=== PATIENT | female | born 1950 | race Caucasian/White ===

== ENCOUNTER 2020-02-27 23:48 | Inpatient (IN) | payer MEDICARE ==
[~2020-02-27] VITALS: Ht 162.6 cm; Wt 57.6 kg
[2020-02-28] MEDS ORDERED: SODIUM CHLORIDE FLUSH 10ML SYR IVF ONE
--- NOTE | 2020-02-28 00:05 | NUR ---
This is a 69 y/o female arriving from [facility] for a Hemorrhagic stroke. Pt had on on january 08 and was healthy before that other than having Graves disease. Pt noticed this morning she had moderate headache and had partial vision loss. Pt has baseline inabilty to move left side or sensation. Pt reports she also has a diaper rash from incontienence. Pt reports she still has full sensation on right side. Pt denies any trauam and is arousable to voice. Pt denies cough, sob or fever. Pt also reports her baseline to consumption is soft diet. Pt struggles with solids and is unable to swallow pills.
--- NOTE | 2020-02-28 00:08 | NUR ---
Pt connected to monitors and call light in reach. Yamilex RN assisting with bm and cleaning patient.
[2020-02-28] MEDS ORDERED: ONDA4TAB13 SL (00:17)
[2020-02-28] MEDS ORDERED: OXYB5TAB10 PO (00:17)
[2020-02-28] MEDS ORDERED: ATOR20TA37 PO (00:17)
[2020-02-28] MEDS ORDERED: OXYM15MI4 NAS (00:17)
[2020-02-28] MEDS ORDERED: AMOX1TAB12 PO (00:17)
[2020-02-28] MEDS ORDERED: MELA1TAB22 PO (00:17)
[2020-02-28] MEDS ORDERED: LEVO25TA4 PO (00:17)
[2020-02-28] MEDS ORDERED: POTA20PA25 PO (00:17)
[2020-02-28] MEDS ORDERED: ocular lubricant OP (00:17)
[2020-02-28] MEDS ORDERED: PRED10TA PO (00:17)
[2020-02-28] MEDS ORDERED: LIOT25TA12 PO (00:17)
[2020-02-28] MEDS ORDERED: DIPH-628 PO (00:17)
[2020-02-28] MEDS ORDERED: LINA145C PO (00:17)
[2020-02-28] MEDS ORDERED: SIME125C PO (00:17)
[2020-02-28] MEDS ORDERED: CALC200T3 PO (00:17)
[2020-02-28 00:27] LABS: BASOPHILS # (AUTO) 0.05 x10^3/uL (0-0.1); BASOPHILS % (AUTO) 0 % (0-1); EOSINOPHILS % (AUTO) 1 % (1-7); LYMPHOCYTES # (AUTO) 1.98 x10^3/uL (1-3.4); LYMPHOCYTES % (AUTO) 13 % (22-44); MD NO; MEAN CORPUSCULAR HGB CONC 33.1 g/dL (32.4-35.8); MEAN CORPUSCULAR VOLUME 96.5 fL (80-100); MEAN PLATELET VOLUME 7.9 fL (7.4-10.4); MONOCYTES # (AUTO) 0.89 x10^3/uL (0.2-0.8); MONOCYTES % (AUTO) 6 % (2-9); NEUTROPHILS # (AUTO) 11.73 x10^3/uL (1.8-6.8); NEUTROPHILS % (AUTO) 80 % (42-75); PLATELET COUNT 368 x10^3/uL (130-400); RED BLOOD COUNT 4.48 x10^6/uL (3.82-5.3); RED CELL DISTRIBUTION WIDTH 14.8 % (9.6-15.2)
--- NOTE | 2020-02-28 00:32 | NUR ---
2ND IV STARTED FOR CTA.
[2020-02-28 00:33] LABS: INTERNATIONAL NORMALIZED RATIO 0.98 (0.93-1.1); PROTHROMBIN TIME 10.4 Seconds (9.6-11.5)
[2020-02-28 00:35] LABS: ALANINE AMINOTRANSFERASE 38 U/L (12-78); ALBUMIN 3.7 g/dL (3.4-5.0); ANION GAP 5 mmol/L (5-15); CALCIUM 10.1 mg/dL (8.5-10.1); CHLORIDE 101 mmol/L (98-107)
[2020-02-28 00:37] LABS: ALKALINE PHOSPHATASE 87 U/L (45-117); BILIRUBIN,TOTAL 0.4 mg/dL (0.2-1.0); TOTAL PROTEIN 7.2 g/dL (6.4-8.2)
--- NOTE | 2020-02-28 01:07 | NUR ---
PT INCONTINENT OF URINE AND BOWEL. PT CLEANED, FULL LINEN CHANGE COMPLETS, PURWICK CATH PLACED
[2020-02-28] MEDS ORDERED: OMNIPAQUE 350 MG/ML, 100ML BOTTLE ONE (01:13)
[2020-02-28] MEDS ORDERED: DEXAMETHASONE 4 MG/ML, 1ML IVPush ONE (01:30)
[2020-02-28] MEDS ORDERED: LEVETIRACETAM 1,000 MG in SODIUM CHLORIDE 0.9% 100 ML IV ONE (01:30)
[2020-02-28] MEDS ORDERED: ONDANSETRON 2MG/ML, 2ML IVPush PRN (02:00)
--- NOTE | 2020-02-28 02:36 | NUR ---
PT RESTING ON GURNEY, INCONTINENT OF BOWEL, PT CLEANED. SEIZURE PRECAUTIONS MAINTAINED. MONITORS IN PLACE, SIDERAIL SUP X2, CALL LIGHT WITHIN REACH. AWAITING ROOM FOR ADMIT
--- NOTE | 2020-02-28 03:25 | NUR ---
PT RESTING CALMLY WITH EYES CLOSED, OPENS EYES EASILY TO VERBAL RESPONSE, MONITORS IN PLACE, CALL LIGHT WITHIN REACH. AWAITING ROOM FOR ADMIT
--- NOTE | 2020-02-28 04:32 | NUR ---
PT INCONTINENT OF URINE AND STOOL. PT CLEANED, CREAM APPLIED TO BUTTOCK, FULL LINEN CHANGE COMPLETED.
--- NOTE | 2020-02-28 05:42 | NUR ---
PT RESTING ON GURNEY WITH EYES CLOSED, OPENS EYES EASILY TO VERBAL RESPONSE, MONITORS IN PLACE, SIDERAILS UP X2, CALL LIGHT WITHIN REACH
--- NOTE | 2020-02-28 06:31 | NUR ---
REPOSITIONED PT ON [facility], PLACED PILLOW UNDER LEFT SIDE FOR COMFORT, PT HAD SMALL BM, PT CLEANED. PT SITTING UP TALKING ON HER CELL PHONE
--- NOTE | 2020-02-28 06:58 | NUR ---
report received from herbert sanford.
--- NOTE | 2020-02-28 06:58 | NUR ---
REPORT GIVEN TO RAYRAY CAROLINA
[2020-02-28] MEDS ORDERED: POTASSIUM CHLORIDE 20 MEQ TAB.ER.PRT PO ONE (07:00)
--- NOTE | 2020-02-28 07:31 | NUR ---
REPORT GIVEN TO VILMA [employer]. ALL QUESTIONS ANSWERED.
[2020-02-28] MEDS ORDERED: LEVOTHYROXINE 25 MCG TABLET PO SCH (09:00)
[2020-02-28] MEDS ORDERED: morphine SULFATE 10 MG/ML, 1ML IVPush PRN (09:30)
[2020-02-28] MEDS ORDERED: OXYcodone IR 5MG TABLET PO PRN (09:30)
[2020-02-28] MEDS ORDERED: OXYcodone IR 5MG TABLET ONE (10:36)
--- NOTE | 2020-02-28 10:40 | NUR ---
PUREE/ THINS -Up for all meals -No straws -Alternate solids/liquids -Small bite/sips Addendum: 02/28/20 at [address] Amended: Links added.
[2020-02-28] MEDS ORDERED: LEVOTHYROXINE 100 MCG TABLET ONE (10:45)
[2020-02-28] MEDS: LIOTHYRONINE 25 MCG TABLET PO SCH (10:48)
[2020-02-28] MEDS: OXYBUTYNIN CHLORIDE 5 MG TABLET PO SCH ×3 (10:48→21:02)
[2020-02-28] MEDS: LEVOTHYROXINE 100 MCG TABLET PO SCH (10:48)
[2020-02-28] MEDS ORDERED: GADOTERATE 7.5 MMOL/15 ML SYR ONE (12:43)
[2020-02-28] MEDS: LEVETIRACETAM 1,000 MG in SODIUM CHLORIDE 0.9% 100 ML IV SCH (13:55)
[2020-02-28 15:10] VITALS: BP 124/79
[2020-02-28] MEDS: ATORVASTATIN 80 MG TABLET PO SCH (21:02)
[2020-02-28] MEDS: ACETAMINOPHEN 650 MG/20.3 ML UDC PO PRN (21:02)
[2020-02-29] MEDS: LEVETIRACETAM 1,000 MG in SODIUM CHLORIDE 0.9% 100 ML IV SCH ×2 (01:34→13:34)
[2020-02-29 04:00] VITALS: BP 116/65
[2020-02-29 04:55] LABS: BASOPHILS # (AUTO) 0.04 x10^3/uL (0-0.1); BASOPHILS % (AUTO) 0 % (0-1); EOSINOPHILS # (AUTO) 0.11 x10^3/uL (0-0.4); EOSINOPHILS % (AUTO) 1 % (1-7); LYMPHOCYTES # (AUTO) 2.47 x10^3/uL (1-3.4); LYMPHOCYTES % (AUTO) 18 % (22-44); MD NO; MEAN CORPUSCULAR HEMOGLOBIN 32.3 pg (27.0-34.8); MEAN CORPUSCULAR HGB CONC 33.3 g/dL (32.4-35.8); MEAN CORPUSCULAR VOLUME 97.2 fL (80-100); MEAN PLATELET VOLUME 7.9 fL (7.4-10.4); MONOCYTES # (AUTO) 0.89 x10^3/uL (0.2-0.8); MONOCYTES % (AUTO) 7 % (2-9); NEUTROPHILS # (AUTO) 10.02 x10^3/uL (1.8-6.8); NEUTROPHILS % (AUTO) 74 % (42-75); PLATELET COUNT 309 x10^3/uL (130-400); RED BLOOD COUNT 4.17 x10^6/uL (3.82-5.3); RED CELL DISTRIBUTION WIDTH 14.8 % (9.6-15.2)
[2020-02-29 05:07] LABS: ANION GAP 6 mmol/L (5-15); CALCIUM 9.5 mg/dL (8.5-10.1); CHLORIDE 106 mmol/L (98-107)
[2020-02-29] MEDS: ACETAMINOPHEN 650 MG/20.3 ML UDC PO PRN ×3 (07:53→20:35)
[2020-02-29] MEDS: OXYBUTYNIN CHLORIDE 5 MG TABLET PO SCH ×3 (08:57→20:35)
[2020-02-29] MEDS: LIOTHYRONINE 25 MCG TABLET PO SCH (08:57)
[2020-02-29] MEDS: LEVOTHYROXINE 100 MCG TABLET PO SCH (08:57)
[2020-02-29 11:30] VITALS: BP 104/68
[2020-02-29] MEDS: CLOBETASOL PROPIONATE CRM 0.05%, 15GM HOMETP SCH ×2 (13:00→20:35)
[2020-02-29] MEDS: HYDROCORTISONE CRM 2.5%, 20GM HOMETP SCH ×2 (13:00→20:36)
[2020-02-29 13:29] VITALS: BP 100/62
[2020-02-29] MEDS ORDERED: DEXTROSE 5% IV ONE (14:00)
[2020-02-29] MEDS ORDERED: LEVETIRACETAM IV ONE (14:00)
[2020-02-29] MEDS: CALCIUM CARBONATE 500 MG TAB.CHEW PO SCH (17:13)
[2020-02-29 20:00] VITALS: BP 104/66
[2020-02-29] MEDS: ATORVASTATIN 80 MG TABLET PO SCH (20:35)
[2020-02-29] MEDS: MELATONIN 5 MG TABLET PO SCH (21:00)
[2020-03-01] MEDS: LEVETIRACETAM 1,000 MG in SODIUM CHLORIDE 0.9% 100 ML IV SCH ×2 (00:48→13:54)
[2020-03-01 02:03] VITALS: BP 118/73
[2020-03-01] MEDS: ACETAMINOPHEN 650 MG/20.3 ML UDC PO PRN ×4 (03:17→22:13)
[2020-03-01 06:26] LABS: BASOPHILS # (AUTO) 0.04 x10^3/uL (0-0.1); BASOPHILS % (AUTO) 0 % (0-1); EOSINOPHILS # (AUTO) 0.15 x10^3/uL (0-0.4); EOSINOPHILS % (AUTO) 1 % (1-7); LYMPHOCYTES # (AUTO) 2.06 x10^3/uL (1-3.4); LYMPHOCYTES % (AUTO) 20 % (22-44); MD NO; MEAN CORPUSCULAR HEMOGLOBIN 32.1 pg (27.0-34.8); MEAN CORPUSCULAR HGB CONC 32.8 g/dL (32.4-35.8); MEAN PLATELET VOLUME 8.5 fL (7.4-10.4); MONOCYTES # (AUTO) 0.75 x10^3/uL (0.2-0.8); MONOCYTES % (AUTO) 7 % (2-9); NEUTROPHILS % (AUTO) 71 % (42-75); PLATELET COUNT 277 x10^3/uL (130-400); RED BLOOD COUNT 3.87 x10^6/uL (3.82-5.3); RED CELL DISTRIBUTION WIDTH 14.6 % (9.6-15.2)
[2020-03-01] MEDS: CALCIUM CARBONATE 500 MG TAB.CHEW PO SCH ×3 (07:39→15:51)
[2020-03-01 08:03] VITALS: BP 127/79
[2020-03-01] MEDS: LIOTHYRONINE 25 MCG TABLET PO SCH (08:13)
[2020-03-01] MEDS: OXYBUTYNIN CHLORIDE 5 MG TABLET PO SCH ×3 (08:13→20:35)
[2020-03-01] MEDS: LEVOTHYROXINE 100 MCG TABLET PO SCH (08:13)
[2020-03-01] MEDS: CLOBETASOL PROPIONATE CRM 0.05%, 15GM HOMETP SCH ×2 (08:18→20:35)
[2020-03-01] MEDS: HYDROCORTISONE CRM 2.5%, 20GM HOMETP SCH ×2 (08:19→20:35)
[2020-03-01 13:36] VITALS: BP 117/83
[2020-03-01] MEDS: HYDROcodone/APAP 5/325 TABLET PO PRN (14:28)
[2020-03-01 18:58] VITALS: BP 117/71
[2020-03-01] MEDS: ATORVASTATIN 80 MG TABLET PO SCH (20:35)
[2020-03-01] MEDS: MELATONIN 5 MG TABLET PO SCH (20:35)
[2020-03-02] VITALS: BP 110/65
[2020-03-02] MEDS: LEVETIRACETAM 1,000 MG in SODIUM CHLORIDE 0.9% 100 ML IV SCH (01:13)
[2020-03-02] MEDS: ACETAMINOPHEN 650 MG/20.3 ML UDC PO PRN ×4 (02:07→21:10)
[2020-03-02 06:42] VITALS: BP 105/63
[2020-03-02] MEDS: LIOTHYRONINE 25 MCG TABLET PO SCH (08:15)
[2020-03-02] MEDS: CALCIUM CARBONATE 500 MG TAB.CHEW PO SCH ×3 (08:15→15:48)
[2020-03-02] MEDS: LEVOTHYROXINE 100 MCG TABLET PO SCH (08:16)
[2020-03-02] MEDS: CLOBETASOL PROPIONATE CRM 0.05%, 15GM HOMETP SCH ×2 (08:16→20:00)
[2020-03-02] MEDS: LEVETIRACETAM 500 MG TABLET PO SCH ×2 (08:16→20:00)
[2020-03-02] MEDS: HYDROCORTISONE CRM 2.5%, 20GM HOMETP SCH ×2 (08:17→20:02)
[2020-03-02] MEDS: OXYBUTYNIN CHLORIDE 5 MG TABLET PO SCH ×3 (08:17→20:00)
[2020-03-02 12:41] VITALS: BP 100/64
[2020-03-02 19:20] VITALS: BP 118/71
[2020-03-02] MEDS: HYDROcodone/APAP 5/325 TABLET PO PRN (20:00)
[2020-03-02] MEDS: ATORVASTATIN 80 MG TABLET PO SCH (20:00)
[2020-03-02] MEDS: MELATONIN 5 MG TABLET PO SCH (20:00)
[2020-03-03 02:39] VITALS: BP 111/69
[2020-03-03 07:08] VITALS: BP 120/77
[2020-03-03] MEDS: CALCIUM CARBONATE 500 MG TAB.CHEW PO SCH ×3 (08:15→16:32)
[2020-03-03] MEDS: LIOTHYRONINE 25 MCG TABLET PO SCH (08:15)
[2020-03-03] MEDS: LEVOTHYROXINE 100 MCG TABLET PO SCH (08:15)
[2020-03-03] MEDS: LEVETIRACETAM 500 MG TABLET PO SCH ×2 (08:16→19:18)
[2020-03-03] MEDS: OXYBUTYNIN CHLORIDE 5 MG TABLET PO SCH ×3 (08:16→19:18)
[2020-03-03] MEDS: CLOBETASOL PROPIONATE CRM 0.05%, 15GM HOMETP SCH ×2 (08:16→19:17)
[2020-03-03] MEDS: HYDROCORTISONE CRM 2.5%, 20GM HOMETP SCH ×2 (08:17→19:19)
[2020-03-03] MEDS: ACETAMINOPHEN 650 MG/20.3 ML UDC PO PRN ×3 (08:22→17:45)
[2020-03-03 12:47] VITALS: BP 120/87
[2020-03-03 18:44] VITALS: BP 130/83
[2020-03-03] MEDS: ATORVASTATIN 80 MG TABLET PO SCH (19:18)
[2020-03-03] MEDS: MELATONIN 5 MG TABLET PO SCH (19:18)
[2020-03-03] MEDS: HYDROcodone/APAP 5/325 TABLET PO PRN (19:18)
[2020-03-03] MEDS ORDERED: BISACODYL 10 MG SUPP PR ONE (20:30)
[2020-03-04] MEDS: ACETAMINOPHEN 650 MG/20.3 ML UDC PO PRN ×2 (00:35→18:04)
[2020-03-04 01:34] VITALS: BP 112/67
[2020-03-04] MEDS: HYDROcodone/APAP 5/325 TABLET PO PRN ×2 (03:54→20:39)
[2020-03-04 08:18] VITALS: BP 116/71
[2020-03-04] MEDS: CALCIUM CARBONATE 500 MG TAB.CHEW PO SCH ×3 (08:23→17:17)
[2020-03-04] MEDS: OXYBUTYNIN CHLORIDE 5 MG TABLET PO SCH ×3 (08:23→20:39)
[2020-03-04] MEDS: LEVETIRACETAM 500 MG TABLET PO SCH ×2 (08:23→20:39)
[2020-03-04] MEDS: LIOTHYRONINE 25 MCG TABLET PO SCH (08:23)
[2020-03-04] MEDS: CLOBETASOL PROPIONATE CRM 0.05%, 15GM HOMETP SCH ×2 (08:24→20:40)
[2020-03-04] MEDS: HYDROCORTISONE CRM 2.5%, 20GM HOMETP SCH ×2 (08:24→20:40)
[2020-03-04] MEDS: LEVOTHYROXINE 100 MCG TABLET PO SCH (08:26)
[2020-03-04 12:18] VITALS: BP 110/71
[2020-03-04] MEDS ORDERED: BISACODYL 10 MG SUPP PR PRN (16:00)
[2020-03-04 19:27] VITALS: BP 110/74
[2020-03-04] MEDS: ATORVASTATIN 80 MG TABLET PO SCH (20:39)
[2020-03-04] MEDS: MELATONIN 5 MG TABLET PO SCH (20:39)
[2020-03-05 00:25] VITALS: BP 118/75
[2020-03-05] MEDS: ACETAMINOPHEN 650 MG/20.3 ML UDC PO PRN ×3 (01:53→19:38)
[2020-03-05 07:20] VITALS: BP 118/75
[2020-03-05] MEDS: CALCIUM CARBONATE 500 MG TAB.CHEW PO SCH ×3 (08:04→16:42)
[2020-03-05] MEDS: LEVOTHYROXINE 100 MCG TABLET PO SCH (08:04)
[2020-03-05] MEDS: LIOTHYRONINE 25 MCG TABLET PO SCH (08:05)
[2020-03-05] MEDS: HYDROCORTISONE CRM 2.5%, 20GM HOMETP SCH ×2 (08:10→20:07)
[2020-03-05] MEDS: LEVETIRACETAM 500 MG TABLET PO SCH ×2 (08:11→20:06)
[2020-03-05] MEDS: SENNA/DOCUSATE TABLET PO SCH (08:13)
[2020-03-05] MEDS: POLYETHYLENE GLYCOL 17 GM PACKET PO SCH (08:13)
[2020-03-05] MEDS: OXYBUTYNIN CHLORIDE 5 MG TABLET PO SCH ×3 (08:15→20:07)
[2020-03-05] MEDS: CLOBETASOL PROPIONATE CRM 0.05%, 15GM HOMETP SCH ×2 (09:00→20:07)
[2020-03-05 15:55] VITALS: BP 123/77
[2020-03-05] MEDS: HYDROcodone/APAP 5/325 TABLET PO PRN (17:01)
[2020-03-05 18:59] VITALS: BP 104/60
[2020-03-05] MEDS: MELATONIN 5 MG TABLET PO SCH (20:06)
[2020-03-05] MEDS: ATORVASTATIN 80 MG TABLET PO SCH (20:07)
[2020-03-06 03:37] VITALS: BP 117/71
[2020-03-06] MEDS: ACETAMINOPHEN 650 MG/20.3 ML UDC PO PRN ×2 (03:52→13:50)
[2020-03-06 07:17] VITALS: BP 111/72
[2020-03-06] MEDS: LEVOTHYROXINE 100 MCG TABLET PO SCH (08:03)
[2020-03-06] MEDS: CALCIUM CARBONATE 500 MG TAB.CHEW PO SCH ×2 (08:03→11:47)
[2020-03-06] MEDS: LEVETIRACETAM 500 MG TABLET PO SCH (08:03)
[2020-03-06] MEDS: HYDROCORTISONE CRM 2.5%, 20GM HOMETP SCH (08:03)
[2020-03-06] MEDS: LIOTHYRONINE 25 MCG TABLET PO SCH (08:03)
[2020-03-06] MEDS: CLOBETASOL PROPIONATE CRM 0.05%, 15GM HOMETP SCH (08:03)
[2020-03-06] MEDS: OXYBUTYNIN CHLORIDE 5 MG TABLET PO SCH (08:03)
[2020-03-06] MEDS: SENNA/DOCUSATE TABLET PO SCH (08:04)
[2020-03-06] MEDS: POLYETHYLENE GLYCOL 17 GM PACKET PO SCH (08:04)
[2020-03-06] MEDS ORDERED: SENN-193 PO (11:55)
[2020-03-06] MEDS ORDERED: CALC200T3 PO (11:55)
[2020-03-06] MEDS ORDERED: LEVO25TA4 PO (11:55)
[2020-03-06 12:26] VITALS: BP 114/69
== END 2020-03-06 14:21 | DRG 64 ==
LOC: ED 02-28 01:23 → EDIP 02-28 01:36 → CCU 02-28 07:41 → 4EST 02-29 11:33
PROVIDERS: ADMIT Internal Medicine; ATTEND Hospitalist
DX: I60.9 Nontraumatic subarachnoid hemorrhage, unspecified (principal); G93.6 Cerebral edema; I69.354 Hemiplegia and hemiparesis following cerebral infarction affecting left non-dominant side; D72.829 Elevated white blood cell count, unspecified; E03.9 Hypothyroidism, unspecified; E05.00 Thyrotoxicosis with diffuse goiter without thyrotoxic crisis or storm; G93.89 Other specified disorders of brain; H05.20 Unspecified exophthalmos; M21.372 Foot drop, left foot; R13.10 Dysphagia, unspecified; Z79.52 Long term (current) use of systemic steroids; Z99.3 Dependence on wheelchair; K64.9 Unspecified hemorrhoids; I69.392 Facial weakness following cerebral infarction; Z03.818 Encounter for observation for suspected exposure to other biological agents ruled out
CPT/HCPCS: 36415; 70450; 70496; 70498; 70553; 80048; 80053; 84443; 85025; 85610; 85730; 87081; 93005; 96365; G0378; J1953; Q9967; 92523-GN; A9575; J7512; U0001